=== PATIENT | female | born 1985 | race Two or more races ===

== ENCOUNTER 2018-01-10 10:25 | Emergency (ER) | payer OTHER ==
--- NOTE | 2018-01-10 10:54 | ER Document Report ---
ED Medical Screen (RME) - General Chief Complaint: Vag Bleeding, +preg <12wks Stated Complaint: VAGINAL BLEEDING Time Seen by Provider: 01/10/18 10:52 Mode of Arrival: Ambulatory Information source: Patient TRAVEL OUTSIDE OF THE [place] IN LAST 30 DAYS: No - HPI Patient complains to provider of: with bleeding Onset: This morning - pt is G4 approx 7.5 wks with onset of abdominal cramping and spotting this am - Related Data Allergies/Adverse Reactions: No Known Allergies Allergy (Verified 02/10/15 08:47) Past Medical History - General Last Menstrual Period: 11/17/2017 - Social History Chew tobacco use (# tins/day): No Frequency of alcohol use: Occasional Drug Abuse: None Pulmonary Medical History: Reports: Hx Asthma Renal/ Medical History: Denies: Hx Peritoneal Dialysis Psychiatric Medical History: Reports: Hx Anxiety Past Surgical History: Reports: Hx Adenoidectomy, Hx Myringotomy - Immunizations Immunizations up to date: Yes Hx Diphtheria, Pertussis, Tetanus Vaccination: Yes Physical Exam - Vital signs Vitals: Temp Pulse Resp BP Pulse Ox 98.6 F 65 16 136/76 H 100 01/10/18 10:48 01/10/18 10:48 01/10/18 10:48 01/10/18 10:48 01/10/18 10:48 Course - Vital Signs Vital signs: Temp Pulse Resp BP Pulse Ox 98.6 F 65 16 136/76 H 100 01/10/18 10:48 01/10/18 10:48 01/10/18 10:48 01/10/18 10:48 01/10/18 10:48 Doctor's Discharge - Discharge Referrals: SANDY GARCIA FNP-C [Primary Care Provider] - Follow up as needed
[2018-01-10 11:20] LABS: ABSOLUTE BASOPHILS # (AUTO) 0.2 10^3/uL (0.0-0.2); ABSOLUTE EOSINOPHILS # (AUTO) 0.3 10^3/uL (0.0-0.6); ABSOLUTE LYMPHOCYTES (AUTO) 3.3 10^3/uL (0.5-4.7); ABSOLUTE MONOCYTES (AUTO) 0.6 10^3/uL (0.1-1.4); ABSOLUTE NEUT (AUTO) 4.5 10^3/uL (1.7-8.2); BASOPHILS % (AUTO) 1.8 % (0-2); EOSINOPHILS % (AUTO) 3.7 % (0-6); HEMATOCRIT 42.2 % (36.0-47.0); HEMOGLOBIN 14.6 g/dL (12.0-15.5); LYMPHOCYTES % (AUTO) 37.2 % (13-45); MEAN CORPUSCULAR HEMOGLOBIN 31.7 pg (27.0-33.4); MEAN CORPUSCULAR HGB CONC 34.5 g/dL (32.0-36.0); MEAN CORPUSCULAR VOLUME 92 fl (80-97); MONOCYTES % (AUTO) 6.4 % (3-13); PLATELET COUNT 357 10^3/uL (150-450); RED CELL DISTRIBUTION WIDTH 13.6 % (11.5-14.0); SEGMENTED NEUTROPHILS % (AUTO) 50.9 % (42-78); TOTAL CELLS COUNTED % (AUTO) 100 %; WHITE BLOOD COUNT 8.9 10^3/uL (4.0-10.5)
[2018-01-10 11:30] LABS: ALANINE AMINOTRANSFERASE 25 U/L (9-52); ALBUMIN 4.4 g/dL (3.5-5.0); ALKALINE PHOSPHATASE 63 U/L (38-126); ANION GAP 14 (5-19); ASPARTATE AMINO TRANSFERASE 24 U/L (14-36); BILIRUBIN,DIRECT 0.3 mg/dL (0.0-0.4); BILIRUBIN,TOTAL 1.2 mg/dL (0.2-1.3); BLOOD UREA NITROGEN 11 mg/dL (7-20); CALCIUM 9.4 mg/dL (8.4-10.2); CARBON DIOXIDE 23 mmol/L (22-30); CHLORIDE 105 mmol/L (98-107); GLUCOSE 99 mg/dL (75-110); POTASSIUM 4.2 mmol/L (3.6-5.0); SODIUM 141.9 mmol/L (137-145); TOTAL PROTEIN 7.4 g/dL (6.3-8.2)
--- NOTE | 2018-01-10 11:58 | RADIOLOGY REPORT (SQ) ---
EXAM DESCRIPTION: U/S OB TRANSVAG W/DOPPLER COMPLETED DATE/TIME: 01/10/2018 11:40 am REASON FOR STUDY: with bleeding COMPARISON: None. TECHNIQUE: Transvaginal static and realtime grayscale images acquired of the pelvis. Additional juan carlos cted spectral and color Doppler images recorded. All images stored on PACs. bHCG: Pending. CLINICAL DATES: 7 week 5 day. LIMITATIONS: None. FINDINGS: FETUS: Single Living intrauterine . The gestational sac is located in the fundu s of the uterus to the right of midline. ULTRASOUND EGA: 6 week 1 day. ULTRASOUND NANI: 09/04/2018. EFW: Not applicable less than 20 weeks. CRL: 0.4 cm. FHR: 120 beats per minute. SURVEY: No visualized anomalies. AMNIOTIC FLUID: Adequate amount. PLACENTA: Not yet developed due to early gestation. SUBCHORIONIC BLEED: No. SIZE OF BLEED: Not applicable. UTERUS: No masses. No anomalies. CERVICAL LENGTH: 3.0 cm. Closed. RIGHT ADNEXA: Normal ovary with normal vascular flow. No adnexal free fluid. 3.6 cm cyst. LEFT ADNEXA: Normal ovary with normal vascular flow. No adnexal free fluid. No adnexal masses. FREE FLUID: None. OTHER: No other significant finding. IMPRESSION: LIVING INTRAUTERINE . EGA 6 WEEK 1 DAY. THE GESTATIONAL SAC IS LOCATED IN THE FUNDUS OF THE UTERUS TO THE RIGHT OF MIDLINE. DIFFICULT TO DET ERMINE IF THIS IS A TRUE INTRAUTERINE OR IF THIS COULD BE AN INTERSTITIAL IN THE PROXIMAL FALLOPIAN TUBE. RECOMMEND CLOSE CLINICAL FOLLOW-UP. Trimester of : First - 0 to 13 weeks. TECHNICAL DOCUMENTATION: JOB ID: [id number] [employer]- All Rights Reserved Reading location - IP/workstation name: [email or web address] [id number]
[2018-01-10 13:22] LABS: APPEARANCE,URINE CLOUDY; BILIRUBIN,URINE NEGATIVE (NEGATIVE); COLOR,URINE YELLOW; GLUCOSE, URINE NEGATIVE (NEGATIVE); KETONES,URINE NEGATIVE (NEGATIVE); LEUKOCYTE ESTERASE,URINE LARGE (NEGATIVE); NITRITE,URINE NEGATIVE (NEGATIVE); PROTEIN,URINE NEGATIVE (NEGATIVE); UROBILINOGEN,URINE NEGATIVE mg/dL (<2.0)
[2018-01-10] MEDS ORDERED: CEPHALEXIN 500 MG CAPSULE PO ONE (14:15)
--- NOTE | 2018-01-10 14:21 | ER Document Report ---
ED GI/ - General Chief Complaint: Vag Bleeding, +preg <12wks Stated Complaint: VAGINAL BLEEDING Time Seen by Provider: 01/10/18 10:52 Mode of Arrival: Ambulatory Information source: Patient Notes: Patient is currently 7-1/2 weeks . Patient reports spotting with lower pelvic cramping that started today. Patient does report some burning with urination for the past few days. Patient denies any fever. Patient has had a test but has not had an ultrasound to confirm the . TRAVEL OUTSIDE OF THE [place] IN LAST 30 DAYS: No - HPI Patient complains to provider of: Pelvic pain, , Vaginal bleeding. No: Vaginal discharge Onset: This morning Timing/Duration: Gradual Quality of pain: Cramping Pain Level: 1 Location: Pelvis Vaginal bleeding (Compared to normal period): Spotting Menstrual period history: Sexual history: Active Associated symptoms: denies: Fever, Nausea, Urinary hesitancy, Urinary frequency , Urinary retention, Vomiting Exacerbated by: Denies Relieved by: Denies Similar symptoms previously: No Recently seen / treated by doctor: No - Related Data Allergies/Adverse Reactions: No Known Allergies Allergy (Verified 01/10/18 10:55) Past Medical History - General Information source: Patient Last Menstrual Period: 11/17/2017 - Social History Smoking Status: Never Smoker Chew tobacco use (# tins/day): No Frequency of alcohol use: Occasional Drug Abuse: None Occupation: None Lives with: Family Family History: Reviewed & Not Pertinent Patient has suicidal ideation: No Patient has homicidal ideation: No Pulmonary Medical History: Reports: Hx Asthma Renal/ Medical History: Denies: Hx Peritoneal Dialysis Psychiatric Medical History: Reports: Hx Anxiety Past Surgical History: Reports: Hx Adenoidectomy, Hx Breast Surgery - augmentation, Hx Myringotomy - Immunizations Immunizations up to date: Yes Hx Diphtheria, Pertussis, Tetanus Vaccination: Yes Hx Pneumococcal Vaccination: 09/04/13 Review of Systems - Review of Systems Constitutional: No symptoms reported EENT: No symptoms reported Cardiovascular: No symptoms reported. denies: Chest pain Respiratory: No symptoms reported. denies: Cough, Short of breath, Stridor Gastrointestinal: Abdominal pain. denies: Nausea Genitourinary: Dysuria. denies: Flank pain Female Genitourinary: , Vaginal bleeding. denies: Vaginal discharge Musculoskeletal: No symptoms reported. denies: Back pain Skin: No symptoms reported Hematologic/Lymphatic: No symptoms reported Neurological/Psychological: No symptoms reported Physical Exam - Vital signs Vitals: Temp Pulse Resp BP Pulse Ox 98.6 F 65 16 136/76 H 100 01/10/18 10:48 01/10/18 10:48 01/10/18 10:48 01/10/18 10:48 01/10/18 10:48 - General General appearance: Appears well, Alert In distress: None - HEENT Head: Normocephalic, Atraumatic Eyes: Normal Conjunctiva: Normal Nasal: Normal Mouth/Lips: Normal Mucous membranes: Normal Neck: Normal, Supple. No: Lymphadenopathy - Respiratory Respiratory status: No respiratory distress Chest status: Nontender Breath sounds: Normal. No: Rales, Rhonchi, Stridor, Wheezing Chest palpation: Normal - Cardiovascular Rhythm: Regular Heart sounds: S1 appreciated, S2 appreciated Murmur: No - Abdominal Inspection: Normal Distension: No distension Bowel sounds: Normal Tenderness: Tender - suprapubic Organomegaly: No organomegaly - Back Back: Normal, Nontender. No: CVA tenderness - Extremities General upper extremity: Normal inspection, Normal ROM General lower extremity: Normal inspection, Normal ROM - Neurological Neuro grossly intact: Yes Cognition: Normal Nidia Coma Scale Eye Opening: Spontaneous Nidia Coma Scale Verbal: Oriented Jerome Coma Scale Motor: Obeys Commands Nidia Coma Scale Total: 15 - Psychological Associated symptoms: Normal affect, Normal mood - Skin Skin Temperature: Warm Skin Moisture: Dry Skin Color: Normal Course - Re-evaluation Re-evalutation: 01/10/18 14:[address] Geeta Clarke who is on-call for [employer]ICE [employer]ECTIVE and discussed patient's presentation as well as her ultrasound report findings. Recommends close follow -up with her [employer] POLICE DETECTIVE and likely repeat ultrasound in the next 1-2 weeks. Recommends giving patient ectopic precautions. - Vital Signs Vital signs: Temp Pulse Resp BP Pulse Ox 98.1 F 65 18 119/74 100 01/10/18 14:29 01/10/18 14:29 01/10/18 14:29 01/10/18 14:29 01/10/18 14:29 - Laboratory Result Diagrams: 01/10/18 11:01 01/10/18 11:01 Laboratory results interpreted by me: 01/10/18 01/10/18 10:56 11:01 Beta HCG, Quant 4751.00 H Urine Blood MODERATE H Ur Leukocyte Esterase LARGE H 01/10/18 14:18 Labs- Entire Visit 01/10/18 01/10/18 01/10/18 10:56 11:01 11:01 WBC 8.9 RBC 4.60 Hgb 14.6 Hct 42.2 MCV 92 MCH 31.7 MCHC 34.5 RDW 13.6 Plt Count 357 Seg Neutrophils % 50.9 Lymphocytes % 37.2 Monocytes % 6.4 Eosinophils % 3.7 Basophils % 1.8 Absolute Neutrophils 4.5 Absolute Lymphocytes 3.3 Absolute Monocytes 0.6 Absolute Eosinophils 0.3 Absolute Basophils 0.2 Sodium 141.9 Potassium 4.2 Chloride 105 Carbon Dioxide 23 Anion Gap 14 BUN 11 Creatinine 0.72 Est GFR ( Amer) > 60 Est GFR (Non-Af Amer) > 60 Glucose 99 Calcium 9.4 Total Bilirubin 1.2 Direct Bilirubin 0.3 Neonat Total Bilirubin Not Reportable Neonat Direct Bilirubin Not Reportable Neonat Indirect Bili Not Reportable AST 24 ALT 25 Alkaline Phosphatase 63 Total Protein 7.4 Albumin 4.4 Beta HCG, Quant 4751.00 H Total Beta HCG POSITIVE Urine Color YELLOW Urine Appearance CLOUDY Urine pH 7.0 Ur Specific [place] 1.020 Urine Protein NEGATIVE Urine Glucose (UA) NEGATIVE Urine Ketones NEGATIVE Urine Blood MODERATE H Urine Nitrite NEGATIVE Urine Bilirubin NEGATIVE Urine Urobilinogen NEGATIVE Ur Leukocyte Esterase LARGE H Urine WBC (Auto) 17 Urine RBC (Auto) 2 Urine Bacteria (Auto) TRACE Squamous Epi Cells Auto 12 Urine Mucus (Auto) FEW Urine Ascorbic Acid NEGATIVE - Diagnostic Test Radiology reviewed: Reports reviewed Discharge - Discharge Clinical Impression: Qualifiers: Weeks of gestation: less than 8 weeks Qualified Code(s): Z3A.01 - Less than 8 weeks gestation of UTI (urinary tract infection) Qualifiers: Urinary tract infection type: site unspecified Hematuria presence: with hematuria Qualified Code(s): N39.0 - Urinary tract infection, site not specified Condition: Stable Disposition: HOME, SELF-CARE Instructions: Cephalexin ([facility]), Urinary Tract Infection ([facility]) Additional Instructions: Return immediately for any new or worsening symptoms Followup with your primary care provider, call tomorrow to make a followup appointment At this time it is uncertain if your is within the uterus or possibly in your fallopian tube, which is concerning for an ectopic or tubal . It is important that you follow-up with your MASTER POLICE DETECTIVE and call their office on Friday to make a follow-up appointment. You will likely need a repeat ultrasound in 1-2 weeks to further evaluate this . Return immediately for any increased pain, increased vaginal bleeding or any concerning symptoms Prescriptions: Cephalexin Monohydrate [Keflex 500 mg Capsule] 500 mg PO BID 7 Days capsule Referrals: SANDY GARCIA, DELI COOK-C [Primary Care Provider] - Follow up as needed
[2018-01-10 14:33] VITALS: BP 119/74
== END 2018-01-10 14:30 | disposition home or self-care (01) ==
LOC: ER 10:25
DX: O23.41 Unspecified infection of urinary tract in pregnancy, first trimester (principal); O26.851 Spotting complicating pregnancy, first trimester; O26.891 Other specified pregnancy related conditions, first trimester; R10.2 Pelvic and perineal pain; R31.9 Hematuria, unspecified; O99.511 Diseases of the respiratory system complicating pregnancy, first trimester; J45.909 Unspecified asthma, uncomplicated; Z3A.01 Less than 8 weeks gestation of pregnancy
CPT/HCPCS: 36415; 76817; 80053; 81001; 84702; 85025; 87086; 93976; 99284

== ENCOUNTER 2018-01-11 15:27 | Emergency (ER) | payer OTHER ==
--- NOTE | 2018-01-11 16:41 | ER Document Report ---
ED Medical Screen (RME) - General Chief Complaint: Vag Bleeding, +preg <12wks Stated Complaint: VAGINAL BLEEDING Time Seen by Provider: 01/11/18 16:35 Mode of Arrival: Ambulatory Information source: Patient Notes: Patient is a 32-year-old female who returns to the emergency room from yesterday complaining of increased bleeding with her . Patient states she was here yesterday had an ultrasound done that stated per patient that was not sure if it was an ectopic or uterine implant. She states yesterday she was just spotting today she is got more bright red to brown flow that is light but similar to her normal periods. She also has a history of preeclampsia of 2 or 3 previous pregnancies. She is 4 para 3 and only history of asthma. She is complaining some mildly increased suprapubic discomfort but it no back pain with this. She was also diagnosed with a UTI yesterday and put on Keflex. She has not had any sexual activity since being seen here yesterday. She also states that she is O+ blood type TRAVEL OUTSIDE OF THE [place] IN LAST 30 DAYS: No - HPI Onset: This morning Onset/Duration: Gradual, Worse Quality of pain: Achy, Dull Severity: Mild Pain Level: 1 Associated Symptoms: Nausea, Vaginal bleeding Exacerbated by: Denies Relieved by: Denies Similar symptoms previously: Yes Recently seen / treated by doctor: Yes - Related Data Smoking: Non-smoker Frequency of alcohol use: None Drug Abuse: None Allergies/Adverse Reactions: No Known Allergies Allergy (Verified 01/10/18 10:55) Past Medical History - General Information source: Patient - Social History Cigarette use (# per day): No Chew tobacco use (# tins/day): No Frequency of alcohol use: None Drug Abuse: None Lives with: Family Family history: Reviewed & Not Pertinent Pulmonary Medical History: Reports: Hx Asthma Renal/ Medical History: Denies: Hx Peritoneal Dialysis Psychiatric Medical History: Reports: Hx Anxiety Past Surgical History: Reports: Hx Adenoidectomy, Hx Breast Surgery - augmentation, Hx Myringotomy - Immunizations Immunizations up to date: Yes Hx Diphtheria, Pertussis, Tetanus Vaccination: Yes Review of Systems - Review of Systems Constitutional: No symptoms reported EENT: No symptoms reported Cardiovascular: No symptoms reported Respiratory: No symptoms reported Gastrointestinal: No symptoms reported Genitourinary: No symptoms reported Female Genitourinary: , Vaginal bleeding Musculoskeletal: No symptoms reported Skin: No symptoms reported Hematologic/Lymphatic: No symptoms reported Neurological/Psychological: No symptoms reported -: Yes All other systems reviewed and negative Physical Exam - Vital signs Vitals: Temp Pulse Resp BP Pulse Ox 98.2 F 66 17 145/82 H 99 01/11/18 15:32 01/11/18 15:32 01/11/18 15:32 01/11/18 15:32 01/11/18 15:32 Interpretation: Hypertensive - Notes Notes: PHYSICAL EXAMINATION: GENERAL: Well-appearing, well-nourished and in no acute distress. HEAD: Atraumatic, normocephalic. EYES: Pupils equal round and reactive to light, extraocular movements intact, conjunctiva are normal. ENT: Nares patent, oropharynx clear without exudates. Moist mucous membranes. NECK: Normal range of motion, supple without lymphadenopathy LUNGS: Breath sounds clear to auscultation bilaterally and equal. No wheezes rales or rhonchi. HEART: Regular rate and rhythm without murmurs ABDOMEN: Soft, mild tenderness noted to suprapubic area to palpation., nondistended abdomen. No guarding, no rebound. No masses appreciated. Female : deferred Musculoskeletal: Normal range of motion, no pitting or edema. No cyanosis. NEUROLOGICAL: Cranial nerves grossly intact. Normal speech, normal gait. Normal sensory, motor exams PSYCH: Normal mood, normal affect. SKIN: Warm, Dry, normal turgor, no rashes or lesions noted. Course - Re-evaluation Re-evalutation: 01/11/18 16:49 Review of patient's visit yesterday shows that the ultrasound was not confirmatory of whether it was an intrauterine or a interstitial . At this point I discussed with Dr. Orantes he feels that at this time patient should be sent to the back for further workup if necessary and a pelvic exam. Basic labs will be ordered at this time we will leave it up to provider's discretion whether to repeat the ultrasound or not. - Vital Signs Vital signs: Temp Pulse Resp BP Pulse Ox 98.2 F 66 17 145/82 H 99 01/11/18 15:32 01/11/18 15:32 01/11/18 15:32 01/11/18 15:32 01/11/18 15:32 Doctor's Discharge - Discharge Clinical Impression: Abnormal vaginal bleeding Qualifiers: Weeks of gestation: less than 8 weeks Qualified Code(s): Z3A.01 - Less than 8 weeks gestation of Referrals: SANDY GARCIA FNP-C [Primary Care Provider] - Follow up as needed
[2018-01-11 17:40] LABS: ABSOLUTE BASOPHILS # (AUTO) 0.1 10^3/uL (0.0-0.2); ABSOLUTE EOSINOPHILS # (AUTO) 0.4 10^3/uL (0.0-0.6); ABSOLUTE MONOCYTES (AUTO) 0.6 10^3/uL (0.1-1.4); ABSOLUTE NEUT (AUTO) 7.1 10^3/uL (1.7-8.2); BASOPHILS % (AUTO) 1.3 % (0-2); EOSINOPHILS % (AUTO) 3.3 % (0-6); HEMATOCRIT 41.1 % (36.0-47.0); HEMOGLOBIN 14.1 g/dL (12.0-15.5); LYMPHOCYTES % (AUTO) 27.1 % (13-45); MEAN CORPUSCULAR HEMOGLOBIN 31.6 pg (27.0-33.4); MEAN CORPUSCULAR HGB CONC 34.3 g/dL (32.0-36.0); MEAN CORPUSCULAR VOLUME 92 fl (80-97); MONOCYTES % (AUTO) 5.1 % (3-13); PLATELET COUNT 349 10^3/uL (150-450); RED BLOOD COUNT 4.47 10^6/uL (3.72-5.28); RED CELL DISTRIBUTION WIDTH 13.1 % (11.5-14.0); SEGMENTED NEUTROPHILS % (AUTO) 63.2 % (42-78); TOTAL CELLS COUNTED % (AUTO) 100 %; WHITE BLOOD COUNT 11.1 10^3/uL (4.0-10.5)
[2018-01-11 17:49] LABS: ALANINE AMINOTRANSFERASE 23 U/L (9-52); ALBUMIN 4.5 g/dL (3.5-5.0); ALKALINE PHOSPHATASE 63 U/L (38-126); ANION GAP 15 (5-19); ASPARTATE AMINO TRANSFERASE 20 U/L (14-36); BILIRUBIN,DIRECT 0.1 mg/dL (0.0-0.4); BILIRUBIN,TOTAL 0.6 mg/dL (0.2-1.3); BLOOD UREA NITROGEN 8 mg/dL (7-20); CALCIUM 9.5 mg/dL (8.4-10.2); CARBON DIOXIDE 22 mmol/L (22-30); CHLORIDE 107 mmol/L (98-107); GLUCOSE 79 mg/dL (75-110); POTASSIUM 4.1 mmol/L (3.6-5.0); SODIUM 143.5 mmol/L (137-145); TOTAL PROTEIN 7.1 g/dL (6.3-8.2)
--- NOTE | 2018-01-11 19:48 | RADIOLOGY REPORT (SQ) ---
EXAM DESCRIPTION: U/S OB TRANSVAGINAL W/O DOP COMPLETED DATE/TIME: 01/11/2018 7:36 pm REASON FOR STUDY: ? ruptured ectopic. US yesterday not confirmatory COMPARISON: 01/10/2018. TECHNIQUE: Transvaginal static and realtime grayscale images acquired of the pelvis. Additional juan carlos cted spectral and color Doppler images recorded. All images stored on PACs. bHCG: Not applicable. CLINICAL DATES: 7 week 6 day. LIMITATIONS: None. FINDINGS: FETUS: Single Living intrauterine . Again seen is an intrauterine gestational s ac somewhat asymmetrically located to the right side ULTRASOUND EGA: 6 week 1 day. ULTRASOUND NANI: 09/05/2018. EFW: Not applicable less than 20 weeks. CRL: 0.34 cm. FHR: 95 beats per minute. SURVEY: No visualized anomalies. AMNIOTIC FLUID: Adequate amount. PLACENTA: Not yet developed due to early gestation. SUBCHORIONIC BLEED: There is a small cystic fluid collection located adjacent to the gestational sac, measuring 3 x 7 mm. UTERUS: No masses. No anomalies. CERVICAL LENGTH: 2.7 cm. Closed. RIGHT ADNEXA: Normal ovary with normal vascular flow. No adnexal free fluid. 3.4 cm cyst. LEFT ADNEXA: Ovary not identified due to poor acoustical window. No adnexal free fluid. No adnexal masses. FREE FLUID: None. OTHER: No other significant finding. IMPRESSION: LIVING INTRAUTERINE . EGA 6 WEEK 1 DAY. AGAIN SEEN IS LOCATION OF THE GESTATIONAL SAC SLIGHTLY TO THE RIGHT OF MIDLINE IN THE UTERINE FUNDUS. SMALL CYSTIC FLUID COLLECTION COULD BE A SMALL SUBCHORIONIC BLEED. Trimester of : First - 0 to 13 weeks. TECHNICAL DOCUMENTATION: JOB ID: [id number] [employer]- All Rights Reserved rev-07/25 Reading location - IP/workstation name: [email or web address]
--- NOTE | 2018-01-11 20:14 | ER Document Report ---
ED General - General Chief Complaint: Vag Bleeding, +preg <12wks Stated Complaint: VAGINAL BLEEDING Time Seen by Provider: 01/11/18 16:35 Mode of Arrival: Ambulatory Notes: Patient is a 32-year-old at approximately 8 weeks gestation who presents with ongoing vaginal bleeding and mild lower abdominal cramping. She was seen yesterday for the same, returns because her symptoms are worsening. Denies a history of similar symptoms during previous pregnancies. States the mild vaginal bleeding is light spotting. She has not yet followed up with P[facility] [employer] [facility] [employer] SPECIALIST. Denies fever or constitutional symptoms. Nothing improves or worsens her symptoms. The pain to the lower abdomen is a cramping, mild, intermittent pain. TRAVEL OUTSIDE OF THE [place] IN LAST 30 DAYS: No - Related Data Allergies/Adverse Reactions: No Known Allergies Allergy (Verified 01/10/18 10:55) Past Medical History - General Information source: Patient Last Menstrual Period: 11/17/17 - Social History Smoking Status: Never Smoker Cigarette use (# per day): No Chew tobacco use (# tins/day): No Frequency of alcohol use: None Drug Abuse: None Lives with: Family Family History: Reviewed & Not Pertinent Patient has suicidal ideation: No Patient has homicidal ideation: No Pulmonary Medical History: Reports: Hx Asthma Renal/ Medical History: Denies: Hx Peritoneal Dialysis Psychiatric Medical History: Reports: Hx Anxiety Past Surgical History: Reports: Hx Adenoidectomy, Hx Breast Surgery - augmentation, Hx Myringotomy - Immunizations Immunizations up to date: Yes Hx Diphtheria, Pertussis, Tetanus Vaccination: Yes Hx Pneumococcal Vaccination: 09/04/13 Review of Systems - Review of Systems Notes: Constitutional: Negative for fever. HENT: Negative for sore throat. Eyes: Negative for visual changes. Cardiovascular: Negative for chest pain. Respiratory: Negative for shortness of breath. Gastrointestinal: Positive for lower abdominal cramping Genitourinary: Positive for vaginal bleeding Musculoskeletal: Negative for back pain. Skin: Negative for rash. Neurological: Negative for headaches, weakness or numbness. 10 point ROS negative except as marked above and in HPI. Physical Exam - Vital signs Vitals: Temp Pulse Resp BP Pulse Ox 98.2 F 66 17 145/82 H 99 01/11/18 15:32 01/11/18 15:32 01/11/18 15:32 01/11/18 15:32 11/04/18 15:32 Interpretation: Hypertensive Notes: PHYSICAL EXAMINATION: GENERAL: Well-appearing, well-nourished and in no acute distress. HEAD: Atraumatic, normocephalic. EYES: Pupils equal round and reactive to light, extraocular movements intact, sclera anicteric, conjunctiva are normal. ENT: nares patent, oropharynx clear without exudates. Moist mucous membranes. NECK: Normal range of motion, supple without lymphadenopathy LUNGS: Breath sounds clear to auscultation bilaterally and equal. No wheezes rales or rhonchi. HEART: Regular rate and rhythm without murmurs ABDOMEN: Soft, nontender, normoactive bowel sounds. No guarding, no rebound. No masses appreciated. EXTREMITIES: Normal range of motion, no pitting or edema. No cyanosis. NEUROLOGICAL: No focal neurological deficits. Moves all extremities spontaneously and on command. PSYCH: Normal mood, normal affect. SKIN: Warm, Dry, normal turgor, no rashes or lesions noted. Course - Re-evaluation Re-evalutation: 01/11/18 20:13 Presentation of an early of undetermined exact anatomic location with ongoing scant vaginal bleeding and lower abdominal cramping. Patient's quantitative hCG has actually fallen today suggestive of most likely a miscarriage however the repeat transvaginal ultrasound continues to be opaque as to whether or not this is a true intrauterine or possibly a right fallopian tube . Patient's abdominal exam is very benign without any significant localized tenderness on palpation. Labs otherwise unremarkable. I did discuss this case with the [facility] [employer]IST fire information officer Dr. Henry. We reviewed the patient's labs, imaging and exam. He states that the patient should be followed up in the office tomorrow for repeat evaluation. This has been discussed at length with the patient. I have emphasized that we cannot definitively exclude an ectopic at this time and this is the main reason that she needs to be seen in clinic tomorrow morning. I do not suspect an alternative life-threatening pathology such as an acute appendicitis, bowel obstruction, bowel perforation, she has no upper abdominal tenderness to suggest biliary pathology or acute pancreatitis. Patient is comfortable with this plan, verbalized the understanding for need to follow-up in clinic tomorrow morning. She has verbalized an understanding she needs to return to the emergency department immediately if she has an abrupt worsening of her abdominal pain, fever, begins bleeding heavily or has any additional concerns. - Vital Signs Vital signs: Temp Pulse Resp BP Pulse Ox 98.0 F 80 18 111/84 99 01/11/18 20:00 01/11/18 20:00 01/11/18 20:00 01/11/18 20:00 01/11/18 15:32 - Laboratory Result Diagrams: 01/11/18 17:22 01/11/18 17:22 Laboratory results interpreted by me: 01/11/18 01/11/18 17:22 17:22 WBC 11.1 H Beta HCG, Quant 4254.50 H - Diagnostic Test Radiology reviewed: Reports reviewed Discharge - Discharge Clinical Impression: Vaginal bleeding during , of unknown anatomic location Condition: Good Disposition: HOME, SELF-CARE Additional Instructions: You need to follow-up in the wound clinic tomorrow. I did discuss with Dr. Henry would like to have you seen in the clinic tomorrow. At this point we cannot definitively say whether or not you have an ectopic with your hormone levels for your are falling which does suggest that this is not a normal . Please return if you develop severe abdominal pain, bleeding that goes through more than 2 pads for more than 2 hours, pass out, or have any other symptoms that are concerning to you. Please follow-up closely with your OBGYN regarding todays visit. Referrals: SANDY GARCIA, OPERATIONS MANAGEMENT TRAINEE-C [Primary Care Provider] - Follow up as needed DRAKE HENRY MD [ACTIVE STAFF] - Follow up tomorrow
[2018-01-11 20:59] VITALS: BP 111/84
== END 2018-01-11 20:52 | disposition home or self-care (01) ==
LOC: ER 15:27
DX: O20.9 Hemorrhage in early pregnancy, unspecified (principal); O26.891 Other specified pregnancy related conditions, first trimester; R10.30 Lower abdominal pain, unspecified; Z3A.08 8 weeks gestation of pregnancy
CPT/HCPCS: 36415; 76817; 80053; 84702; 85025; 99284

== ENCOUNTER → 2018-02-14 | Outpatient (CLI) | payer OTHER | LOC: LAB 14:25 | PROVIDERS: ATTEND Midwife | DX: Z32.01 Encounter for pregnancy test, result positive (principal) | CPT/HCPCS: 36415; 84702 ==

== ENCOUNTER 2018-05-29 11:59 | Emergency (ER) | payer OTHER ==
[2018-05-29 12:17] VITALS: BP 135/73
--- NOTE | 2018-05-29 13:23 | ER Document Report ---
ED Respiratory Problem - General Chief Complaint: Shortness Of Breath Stated Complaint: COUGH,SHORT OF BREATH Time Seen by Provider: 05/29/18 13:17 Primary Care Provider: [facility] [Provider Group] - Follow up as needed MÓNICA KABA CNM [CERTIFIED NURSE TRAVEL ADMINISTRATOR] - Follow up as needed Mode of Arrival: Ambulatory Information source: Patient Notes: 32-year-old female presents to ED for complaint of cough cold congestion runny nose with some shortness of breath for the last couple days. She is 20 weeks . Her lungs are clear respirations are regular and unlabored speaking in full sentences. She does have a nonproductive cough. She states she has been using Claritin Tylenol and other medications. I have inserted adjusted Flonase if it is okay with her [facility]. Otherwise patient is to follow-up with her [facility] as this is an upper respiratory infection. TRAVEL OUTSIDE OF THE [place] IN LAST 30 DAYS: No - HPI Patient complains to provider of: Cough Onset: Other Initiating Event: URI - Several days Quality of pain: No pain Severity: None Associated symptoms: Congestion, Cough, PND, Runny nose, Sinus pain/pressure Similar symptoms previously: Yes Recently seen / treated by doctor: No - Related Data Allergies/Adverse Reactions: No Known Allergies Allergy (Verified 05/29/18 12:09) Past Medical History - General Information source: Patient - Social History Smoking Status: Never Smoker Chew tobacco use (# tins/day): No Frequency of alcohol use: None Drug Abuse: None Lives with: Family Family History: Reviewed & Not Pertinent Patient has suicidal ideation: No Patient has homicidal ideation: No - Past Medical History Cardiac Medical History: Reports: None Pulmonary Medical History: Reports: Hx Asthma EENT Medical History: Reports: None Neurological Medical History: Reports: None Endocrine Medical History: Reports: None Renal/ Medical History: Reports: None Malignancy Medical History: Reports: None GI Medical History: Reports: None Musculoskeletal Medical History: Reports None Skin Medical History: Reports None Psychiatric Medical History: Reports: Hx Anxiety Traumatic Medical History: Reports: None Infectious Medical History: Reports: None Past Surgical History: Reports: Hx Adenoidectomy, Hx Breast Surgery - augmentation, Hx Myringotomy - Immunizations Immunizations up to date: Yes Hx Diphtheria, Pertussis, Tetanus Vaccination: Yes Hx Pneumococcal Vaccination: 09/04/13 Review of Systems - Review of Systems Constitutional: Recent illness EENT: Nose discharge, Sinus pressure, Sinus discharge Cardiovascular: No symptoms reported Respiratory: Cough. denies: Sputum, Wheezing Gastrointestinal: No symptoms reported Genitourinary: No symptoms reported Female Genitourinary: No symptoms reported Musculoskeletal: No symptoms reported Skin: No symptoms reported Hematologic/Lymphatic: No symptoms reported Neurological/Psychological: No symptoms reported Physical Exam - Vital signs Vitals: Temp Pulse Resp BP Pulse Ox 98.3 F 88 16 135/73 H 98 05/29/18 12:16 05/29/18 12:16 05/29/18 12:16 05/29/18 12:16 05/29/18 12:16 Interpretation: Normal - General General appearance: Appears well, Alert - HEENT Head: Normocephalic, Atraumatic Eyes: Normal Pupils: PERRL - Respiratory Respiratory status: No respiratory distress Chest status: Nontender Breath sounds: Nonproductive cough. No: Decreased air movement, Productive cough, Rales, Rhonchi, Stridor, Wheezing Chest palpation: Normal - Cardiovascular Rhythm: Regular Heart sounds: Normal auscultation Murmur: No - Abdominal Inspection: Normal Distension: No distension Bowel sounds: Normal Tenderness: Nontender Organomegaly: No organomegaly - Back Back: Normal, Nontender - Extremities General upper extremity: Normal inspection, Nontender, Normal color, Normal ROM, Normal temperature General lower extremity: Normal inspection, Nontender, Normal color, Normal ROM, Normal temperature, Normal weight bearing. No: Benito's sign - Neurological Neuro grossly intact: Yes Cognition: Normal Orientation: AAOx4 [place] Coma Scale Eye Opening: Spontaneous [place] Coma Scale Verbal: Oriented [place] Coma Scale Motor: Obeys Commands Nidia Coma Scale Total: 15 Speech: Normal Motor strength normal: LUE, RUE, LLE, RLE Sensory: Normal - Psychological Associated symptoms: Normal affect, Normal mood - Skin Skin Temperature: Warm Skin Moisture: Dry Skin Color: Normal Course - Re-evaluation Re-evalutation: 05/29/18 13:22 After performing a Medical Screening Examination, I estimate there is LOW risk for ACUTE CORONARY SYNDROME, RESPIRATORY FAILURE, SEPSIS OR MENINGITIS, thus I consider the discharge disposition reasonable. I have reevaluated this patient multiple times and no significant life threatening changes are noted. The patient and I have discussed the diagnosis and risks, and we agree with discharging home with close follow-up. We also discussed returning to the Emergency Department immediately if new or worsening symptoms occur. We have discussed the symptoms which are most concerning (e.g., changing or worsening pain, trouble swallowing or breathing, neck stiffness, fever) that necessitate immediate return. - Vital Signs Vital signs: Temp Pulse Resp BP Pulse Ox 98.3 F 88 16 135/73 H 98 05/29/18 12:16 05/29/18 12:16 05/29/18 12:16 05/29/18 12:16 05/29/18 12:16 Discharge - Discharge Clinical Impression: Upper respiratory infection in Condition: Stable Disposition: HOME, SELF-CARE Additional Instructions: UPPER RESPIRATORY ILLNESS: You have a viral infection of the respiratory passages -- a "cold." This common infection causes nasal congestion, drainage, and often sore throat and cough. It is highly contagious. The disease usually lasts about 10 to 14 days. There is no "cure" for the viral infection -- it must run its course. If there is a complication, such as bacterial infection in the nose, sinuses, middle ear, or bronchial tubes, antibiotics may be required. The antibiotics won't affect the virus. Drink plenty of fluids. A humidifier may help. An expectorant medication or decongestant may make you more comfortable. Use acetaminophen or ibuprofen for fever or aches. See the doctor if fever persists over two days, if there is any significant worsening of your symptoms, or if you simply fail to improve as expected. USE OF ACETAMINOPHEN (Tylenol): Acetaminophen may be taken for pain relief or fever control. It's much safer than aspirin, offering a wider range of "safe" dosages. It is safe during . Some brand names are Tylenol, Panadol, Datril, Anacin 3, Tempra, and Liquiprin. Acetaminophen can be repeated every four hours. The following are maximum recommended dosages: >89 pounds or adults 650 mg to 900 mg Acetaminophen can be repeated every four hours. Maximum dose not to exceed 4000 mg a day. Salt and soda solution 1 quart of water 1 tablespoon of salt 1 teaspoon of baking soda Mixed 3 ingredients together and boil for 1 minute Placed in a covered quart jar Use 1/2 ounce of cold solution to gargle 3 times a day FOLLOW-UP CARE: If you have been referred to a physician for follow-up care, call the physicians office for an appointment as you were instructed or within the next two days. If you experience worsening or a significant change in your symptoms, notify the physician immediately or return to the Emergency Department at any time for re-evaluation. Forms: Elevated Blood Pressure Referrals: MÓNICA KABA CNM [CERTIFIED NURSE TRAVEL ADMINISTRATOR] - Follow up as needed [facility] [Provider Group] - Follow up as needed
== END 2018-05-29 13:23 | disposition home or self-care (01) ==
LOC: ER 11:59
DX: O98.812 Other maternal infectious and parasitic diseases complicating pregnancy, second trimester (principal); J06.9 Acute upper respiratory infection, unspecified; R06.2 Wheezing; Z3A.20 20 weeks gestation of pregnancy
CPT/HCPCS: 99283

== ENCOUNTER 2018-06-19 20:59 | Emergency (ER) | payer OTHER ==
[2018-06-19 21:29] VITALS: BP 135/76
== END 2018-06-19 22:54 | disposition left against medical advice (07) ==
LOC: ER 20:59
DX: Z53.21 Procedure and treatment not carried out due to patient leaving prior to being seen by health care provider (principal)

== ENCOUNTER 2018-07-26 04:14 | Outpatient (CLI) | payer OTHER ==
[2018-07-26 05:39] LABS: APPEARANCE,URINE CLEAR; BILIRUBIN,URINE NEGATIVE (NEGATIVE); COLOR,URINE YELLOW; GLUCOSE, URINE NEGATIVE (NEGATIVE); KETONES,URINE NEGATIVE (NEGATIVE); LEUKOCYTE ESTERASE,URINE NEGATIVE (NEGATIVE); NITRITE,URINE NEGATIVE (NEGATIVE); PROTEIN,URINE NEGATIVE (NEGATIVE); URINE SPECIFIC GRAVITY 1.006; UROBILINOGEN,URINE NEGATIVE mg/dL (<2.0)
[2018-07-26 06:06] LABS: URINE AMPHETAMINES SCREEN NEGATIVE; URINE BARBITURATES SCREEN NEGATIVE; URINE BENZODIAZEPINES SCREEN NEGATIVE; URINE COCAINE SCREEN NEGATIVE; URINE MARIJUANA (THC) SCREEN NEGATIVE; URINE METHADONE SCREEN NEGATIVE; URINE PHENCYCLIDINE SCREEN NEGATIVE
== END 2018-07-26 06:10 | disposition home or self-care (01) ==
LOC: LC 04:14
PROVIDERS: ATTEND Obstetrics & Gynecology
PROC: 4A1HXCZ Monitoring of Products of Conception, Cardiac Rate, External Approach (ICD-10-PCS; principal; 2018-07-26)
DX: O47.02 False labor before 37 completed weeks of gestation, second trimester (principal); Z3A.27 27 weeks gestation of pregnancy
CPT/HCPCS: 80307; 81001

== ENCOUNTER 2018-08-26 16:00 | Outpatient (CLI) | payer OTHER ==
[2018-08-26 16:53] LABS: APPEARANCE,URINE CLEAR; BILIRUBIN,URINE NEGATIVE (NEGATIVE); COLOR,URINE COLORLESS; GLUCOSE, URINE NEGATIVE (NEGATIVE); KETONES,URINE NEGATIVE (NEGATIVE); LEUKOCYTE ESTERASE,URINE NEGATIVE (NEGATIVE); NITRITE,URINE NEGATIVE (NEGATIVE); PROTEIN,URINE NEGATIVE (NEGATIVE); URINE SPECIFIC GRAVITY 1.005; UROBILINOGEN,URINE NEGATIVE mg/dL (<2.0)
[2018-08-26 17:19] LABS: URINE AMPHETAMINES SCREEN NEGATIVE; URINE BARBITURATES SCREEN NEGATIVE; URINE BENZODIAZEPINES SCREEN NEGATIVE; URINE COCAINE SCREEN NEGATIVE; URINE MARIJUANA (THC) SCREEN NEGATIVE; URINE METHADONE SCREEN NEGATIVE; URINE PHENCYCLIDINE SCREEN NEGATIVE
[2018-08-26 17:38] LABS: BACTERIA (WET MOUNT) 3+ BACTERIA SEEN; RBCS (WET MOUNT) 1+ RBCS SEEN; T.VAGINALIS (WET MOUNT) NO TRICHOMONAS SEEN; WBCS (WET MOUNT) 2+ WBCS SEEN; YEAST (WET MOUNT) NO YEAST SEEN
[2018-08-26] MEDS ORDERED: HYDROXYZINE PAMOATE 50 MG CAPSULE PO ONE (18:22)
--- NOTE | 2018-08-26 18:39 | RADIOLOGY REPORT (SQ) ---
EXAM DESCRIPTION: U/S OB LIMITED COMPLETED DATE/TIME: 08/26/2018 6:21 pm REASON FOR STUDY: contractions, cervical length, pres, Fluid COMPARISON: None. TECHNIQUE: Limited transabdominal grayscale ultrasound for evaluation of specific requested obstetri kyle parameters. LIMITATIONS: None. FINDINGS: CERVICAL LENGTH: 3.1 cm Closed. WOJCIECH: 10.1 cm. Clear fluid. FHR: 132 beats per minute. PRESENTATION: Cephalic. PLACENTA: Fundal ANATOMY: Not assessed OTHER: Vertex presentation. IMPRESSION: LIMITED OBSTETRICAL ULTRASOUND WITH MEASURED PARAMETERS DELINEATED ABOVE. Trimester of : Third trimester - 28 weeks to delivery. TECHNICAL DOCUMENTATION: JOB ID: [id number] [employer]- All Rights Reserved Reading location - IP/workstation name: [email or web address]
[2018-08-26 19:09] LABS: CHLAM PCR NOT DETECTED (NOT DETECT)
--- NOTE | 2018-08-26 19:30 | Non Stress Test Report ---
Non Stress Test Datetime Report Generated by CPN: 08/26/2018 19:30 DEMOGRAPHIC Test Number: 1 EGA NST: 32.2 INDICATION Indication for Study: Ordered by Provider VITAL SIGNS Temperature - NST: 98.2 Pulse - NST: 57 RESP - NST: 18 NBPSYS NST: 119 NBPDIA NST: 71 MONITORING Monitor Explained: Monitor Explained; Test Explained; Patient Verbalized Understanding Time on Monitor: 08/26/2018 16:25 Time off Monitor: 08/26/2018 18:56 NST Duration: 151 NST INTERVENTIONS NST Interventions: PO Hydration Physician Notified NST: Dr. Mayorga BABY A: [id number] BABY A Movement : Present Contraction Frequency : 0 FHR Baseline : 125 Accelerations : 15X15 Decelerations : None Variability : Moderate 6-25bpm NST Review: Meets Criteria for Reactive NST NST Review and Verified By : DIONTE Jaimes Results: Reactive NST REPORT Report Trigger: Send Report
== END 2018-08-26 19:10 | disposition home or self-care (01) ==
LOC: LC 16:00
PROVIDERS: ATTEND Student in an Organized Health Care Education/Training Program
PROC: 4A1HXCZ Monitoring of Products of Conception, Cardiac Rate, External Approach (ICD-10-PCS; principal; 2018-08-26)
DX: O47.03 False labor before 37 completed weeks of gestation, third trimester (principal); Z3A.32 32 weeks gestation of pregnancy
CPT/HCPCS: 59025; 76815; 80307; 81001; 87210; 87491; 87591

== ENCOUNTER 2018-09-15 15:07 | Outpatient (CLI) | payer OTHER ==
[2018-09-15 15:50] LABS: UR PRO/CREAT RATIO RESULT 0.5 mg/mg (0.0-0.2); URINE CREATININE 31.2 mg/dL (16-327); URINE PROTEIN 15.1 mg/dL (<12)
[2018-09-15 15:55] LABS: HEMOGLOBIN 11.4 g/dL (12.0-15.5); MEAN CORPUSCULAR HGB CONC 33.7 g/dL (32.0-36.0); MEAN CORPUSCULAR VOLUME 89 fl (80-97); PLATELET COUNT 296 10^3/uL (150-450); RED BLOOD COUNT 3.82 10^6/uL (3.72-5.28); RED CELL DISTRIBUTION WIDTH 14.1 % (11.5-14.0); WHITE BLOOD COUNT 12.7 10^3/uL (4.0-10.5)
[2018-09-15 16:16] LABS: ALANINE AMINOTRANSFERASE 24 U/L (9-52); ALKALINE PHOSPHATASE 722 U/L (38-126); ANION GAP 7 (5-19); ASPARTATE AMINO TRANSFERASE 18 U/L (14-36); BILIRUBIN,DIRECT 0.1 mg/dL (0.0-0.4); BILIRUBIN,TOTAL 0.3 mg/dL (0.2-1.3); BLOOD UREA NITROGEN 13 mg/dL (7-20); CALCIUM 8.8 mg/dL (8.4-10.2); CARBON DIOXIDE 22 mmol/L (22-30); CHLORIDE 107 mmol/L (98-107); GLUCOSE 78 mg/dL (75-110); POTASSIUM 3.9 mmol/L (3.6-5.0); SODIUM 136.1 mmol/L (137-145); TOTAL PROTEIN 5.6 g/dL (6.3-8.2); URIC ACID 3.7 mg/dL (2.5-6.2)
--- NOTE | 2018-09-15 17:01 | Non Stress Test Report ---
Non Stress Test Datetime Report Generated by CPN: 09/15/2018 17:00 DEMOGRAPHIC EGA NST: 35.1 INDICATION Indication for Study: Gestational Hypertension MONITORING Monitor Explained: Monitor Explained; Test Explained; Patient Verbalized Understanding Time on Monitor: 09/15/2018 16:30 Time off Monitor: 09/15/2018 16:52 NST Duration: 22 NST INTERVENTIONS NST Interventions: PO Hydration Physician Notified NST: Dr Jem BABY A: [id number] BABY A Movement : Present Contraction Frequency : o FHR Baseline : 120 Accelerations : 15X15 Decelerations : None Variability : Moderate 6-25bpm NST Review: Meets Criteria for Reactive NST NST Review and Verified By : DIONTE Jaimes Results: Reactive NST REPORT Report Trigger: Send Report
== END 2018-09-15 17:05 | disposition home or self-care (01) ==
LOC: LC 15:07
PROVIDERS: ATTEND Obstetrics & Gynecology
DX: O36.8330 Maternal care for abnormalities of the fetal heart rate or rhythm, third trimester, not applicable or unspecified (principal); O16.3 Unspecified maternal hypertension, third trimester; O12.13 Gestational proteinuria, third trimester; Z3A.35 35 weeks gestation of pregnancy
CPT/HCPCS: 36415; 59025; 80053; 82570; 84156; 84550; 85027

== ENCOUNTER 2018-10-01 00:16 | Emergency (ER) | payer OTHER ==
[2018-10-01 01:03] LABS: APPEARANCE,URINE CLEAR; BILIRUBIN,URINE NEGATIVE (NEGATIVE); COLOR,URINE STRAW; GLUCOSE, URINE NEGATIVE (NEGATIVE); KETONES,URINE NEGATIVE (NEGATIVE); LEUKOCYTE ESTERASE,URINE SMALL (NEGATIVE); NITRITE,URINE NEGATIVE (NEGATIVE); PROTEIN,URINE NEGATIVE (NEGATIVE); URINE SPECIFIC GRAVITY 1.004; UROBILINOGEN,URINE NEGATIVE mg/dL (<2.0)
--- NOTE | 2018-10-01 02:38 | ER Document Report ---
ED General - General Chief Complaint: Post Problem Stated Complaint: BLOOD PRESSURE ISSUES Time Seen by Provider: 10/01/18 02:11 Primary Care Provider: FIDELINA BROWN MD [ACTIVE STAFF] - Follow up as needed Notes: Patient is a 33-year-old female that comes to the emergency department for chief complaint of concerns about preeclampsia. She is 3 days status post vaginal delivery, she was discharged yesterday during the day, she was prescribed Procardia XL 30 mg although she has not been able to fill or take this yet. She states she was hypertensive at discharge. She took her blood pressure at home and it was 160s over 90s. She states she was diagnosed with preeclampsia with her previous . She did not have any complications reported with the most recent except for hypertension at discharge. She is not normally on hypertensive medications. She denies headache, swelling of the lower extremities, she denies any specific symptoms now except for "feeling tight everywhere". TRAVEL OUTSIDE OF THE [place] IN LAST 30 DAYS: No - Related Data Allergies/Adverse Reactions: No Known Allergies Allergy (Verified 09/27/18 19:08) Past Medical History - General Information source: Patient - Social History Smoking Status: Never Smoker Chew tobacco use (# tins/day): No Frequency of alcohol use: None Drug Abuse: None Lives with: Family Family History: Reviewed & Not Pertinent Patient has suicidal ideation: No Patient has homicidal ideation: No Pulmonary Medical History: Reports: Hx Asthma Renal/ Medical History: Denies: Hx Peritoneal Dialysis Psychiatric Medical History: Reports: Hx Anxiety Past Surgical History: Reports: Hx Adenoidectomy, Hx Breast Surgery - augmentation, Hx Myringotomy - Immunizations Immunizations up to date: Yes Hx Diphtheria, Pertussis, Tetanus Vaccination: Yes Hx Pneumococcal Vaccination: 09/04/13 Review of Systems - Review of Systems Constitutional: See HPI EENT: No symptoms reported Cardiovascular: No symptoms reported Respiratory: No symptoms reported Gastrointestinal: No symptoms reported Genitourinary: No symptoms reported Female Genitourinary: See HPI Musculoskeletal: No symptoms reported Skin: No symptoms reported Hematologic/Lymphatic: No symptoms reported Neurological/Psychological: No symptoms reported Physical Exam - Vital signs Vitals: Temp Pulse Resp BP Pulse Ox 97.9 F 68 14 162/90 H 100 10/01/18 00:19 10/01/18 00:19 10/01/18 00:19 10/01/18 00:10/01/18 00:19 - Notes Notes: GENERAL: Alert, interacts well. No acute distress. HEAD: Normocephalic, atraumatic. EYES: Pupils equal, round, and reactive to light. Extraocular movements intact. ENT: Oral mucosa moist, tongue midline. Oropharynx unremarkable. Airway patent. LUNGS: Clear to auscultation bilaterally, no wheezes, rales, or rhonchi. No respiratory distress. HEART: Regular rate and rhythm. No murmur ABDOMEN: Soft, non-tender. Non-distended. Bowel sounds present in all 4 quadr ants. GENITOURINARY: Deferred EXTREMITIES: Moves all 4 extremities spontaneously. No edema, normal radial and dorsalis pedis pulses bilaterally. No cyanosis. BACK: no cervical, thoracic, lumbar midline tenderness. No saddle anesthesia, normal distal neurovascular exam. Moves all extremities in full range of motion. 2+ reflexes bilaterally. Strength 5 out of 5 throughout. NEUROLOGICAL: Alert and oriented x3. Normal speech. Cranial nerves II through XII grossly intact. PSYCH: Normal affect, normal mood. SKIN: Warm, dry, normal turgor. No rashes or lesions noted. Course - Re-evaluation Re-evalutation: Patient is hypertension on evaluation. Her remaining vital signs are unremarkable. She is not notably hyperreflexive, she has no lower extremity swelling, she denies headache. She is well-appearing but slightly anxious. I did evaluate the urine from earlier, she does not have protein in it, nonspecific otherwise, culture was added. No urinary symptoms reported. CBC shows leukocytosis, however she had leukocytosis previously and this is not significantly changed from the previous tests. She also has no fever, no current complaints on my evaluation, clear lungs, no cough, soft benign abdomen, no flank pain, no dysuria. Chemistry is generally unremarkable, LFTs are unremarkable. Platelets are unremarkable. I spoke with patient again, discussed her results, discussed that I will consult with [facility]. Patient was actually very reassured by her labs. Her blood pressure started going down almost immediately. There appears to be an anxiety component with this. Patient requests to be simply medicated with Procardia for tonight and discharged. She actually declines consultation with OB, she states that she was hypertensive at discharge and she has been through this many times post in the past. However she does agree that if she develops a headache, swelling, or worsens in any way that she will return. Patient was discharged after dose of Procardia, she states she has her prescription already given to the pharmacy and she will pick it up this morning. - Vital Signs Vital signs: Temp Pulse Resp BP Pulse Ox 98.0 F 68 17 167/65 H 99 10/01/18 03:30 10/01/18 00:19 10/01/18 03:30 10/01/18 03:30 10/01/18 03:30 - Laboratory Result Diagrams: 10/01/18 02:28 10/01/18 02:28 Laboratory results interpreted by me: 10/01/18 10/01/18 10/01/18 00:43 02:28 02:28 WBC 16.6 H RBC 3.68 L Hgb 11.2 L Hct 33.0 L RDW 14.4 H Absolute Neutrophils 12.6 H Chloride 108 H Alkaline Phosphatase 459 H Total Protein 6.0 L Albumin 3.3 L Urine Blood LARGE H Ur Leukocyte Esterase SMALL H Discharge - Discharge Clinical Impression: Hypertension in , condition Condition: Stable Disposition: HOME, SELF-CARE Additional Instructions: Fill and take your Procardia daily. Follow-up closely with [facility] for additional management. Return if you worsen including swelling of the lower extremities, severe headache, fever, or if something is not right. Referrals: FIDELINA BROWN MD [ACTIVE STAFF] - Follow up as needed
[2018-10-01 02:43] LABS: ABSOLUTE BASOPHILS # (AUTO) 0.2 10^3/uL (0.0-0.2); ABSOLUTE EOSINOPHILS # (AUTO) 0.4 10^3/uL (0.0-0.6); ABSOLUTE LYMPHOCYTES (AUTO) 2.6 10^3/uL (0.5-4.7); ABSOLUTE MONOCYTES (AUTO) 0.8 10^3/uL (0.1-1.4); ABSOLUTE NEUT (AUTO) 12.6 10^3/uL (1.7-8.2); BASOPHILS % (AUTO) 1.3 % (0-2); EOSINOPHILS % (AUTO) 2.3 % (0-6); HEMOGLOBIN 11.2 g/dL (12.0-15.5); LYMPHOCYTES % (AUTO) 15.8 % (13-45); MEAN CORPUSCULAR HEMOGLOBIN 30.3 pg (27.0-33.4); MEAN CORPUSCULAR HGB CONC 33.8 g/dL (32.0-36.0); MEAN CORPUSCULAR VOLUME 90 fl (80-97); MONOCYTES % (AUTO) 4.5 % (3-13); PLATELET COUNT 325 10^3/uL (150-450); RED BLOOD COUNT 3.68 10^6/uL (3.72-5.28); RED CELL DISTRIBUTION WIDTH 14.4 % (11.5-14.0); SEGMENTED NEUTROPHILS % (AUTO) 76.1 % (42-78); TOTAL CELLS COUNTED % (AUTO) 100 %; WHITE BLOOD COUNT 16.6 10^3/uL (4.0-10.5)
[2018-10-01 02:53] LABS: ALANINE AMINOTRANSFERASE 29 U/L (9-52); ALBUMIN 3.3 g/dL (3.5-5.0); ALKALINE PHOSPHATASE 459 U/L (38-126); ANION GAP 7 (5-19); ASPARTATE AMINO TRANSFERASE 24 U/L (14-36); BILIRUBIN,DIRECT 0.1 mg/dL (0.0-0.4); BILIRUBIN,TOTAL 0.4 mg/dL (0.2-1.3); BLOOD UREA NITROGEN 9 mg/dL (7-20); CALCIUM 9.2 mg/dL (8.4-10.2); CARBON DIOXIDE 26 mmol/L (22-30); CHLORIDE 108 mmol/L (98-107); GLUCOSE 90 mg/dL (75-110); POTASSIUM 3.9 mmol/L (3.6-5.0)
[2018-10-01] MEDS ORDERED: NIFEDIPINE 30 MG TAB.ER.24 PO ONE (03:21)
[2018-10-01 03:33] VITALS: BP 167/65
== END 2018-10-01 03:33 | disposition home or self-care (01) ==
LOC: ER 00:16
DX: O13.5 Gestational [pregnancy-induced] hypertension without significant proteinuria, complicating the puerperium (principal)
CPT/HCPCS: 36415; 80053; 81001; 85025; 87086; 99283